=== PATIENT | female | born 1950 ===

== ENCOUNTER 2021-04-29 06:10 | Day surgery (SDC) | payer OTHER ==
[~2021-04-29 06:10] MED LIST: ADULT LOW DOSE81 M1 PO; ATIVAN1 M1 PO; SIMVASTATIN10 MG PO; SYNTHROID100 MCG PO
[2021-04-29] MEDS ORDERED: MORGIDOX100 MG PO (08:25)
[2021-04-29] MEDS ORDERED: NAPR500T14 PO (08:25)
== END 2021-04-29 14:00 | disposition home or self-care (01) ==
LOC: CIR.AMB 06:10
PROVIDERS: ATTEND Obstetrics & Gynecology
DX: N84.0 Polyp of corpus uteri (principal)